=== PATIENT | male | born 1945 | race Caucasian/White ===

== ENCOUNTER → 2023-04-20 07:11 | Outpatient (CLI) | payer MEDICARE, OTHER, SELFPAY ==
[2023-04-20 08:53] LABS: Add Manual Diff / Slide Review NO; Basophils Absolute Auto 0 /uL (0-100); Basophils Percent Auto 0.9 % (0-2); Eosinophils Absolute Auto 0 /uL (0-450); Eosinophils Percent Auto 0.8 % (2-4); Hematocrit 39.7 % (41-53); Hemoglobin 13.6 g/dL (13.5-17.5); Lymphocytes Absolute Auto 1100 /uL (1100-4500); Lymphocytes Percent Auto 36.5 % (25-40); Mean Corpuscular HGB Conc 34.2 % (30-36); Mean Corpuscular Hemoglobin 31.2 PG (26-34); Mean Corpuscular Volume 91.4 fL (80-100); Monocytes Absolute Auto 700 /uL (0-900); Monocytes Percent Auto 23.8 % (3-14); Neutrophils Absolute Auto 1200 /uL (1500-7000); Platelet Count 64 X10^3/uL (150-400); Red Blood Cell Count 4.34 X10^6/uL (4.5-5.9); Red Cell Distribution Width 14.9 % (11.6-14.8); White Blood Cell Count 3.1 X10^3/uL (4.5-11.0)
[2023-04-20 09:12] LABS: Alanine Aminotransferase 41 IU/L (<50); Albumin 4.2 g/dL (3.5-5.0); Albumin Globulin Ratio 1.4 (1.0-2.8); Alkaline Phosphatase 72 U/L (38-126); Aspartate Aminotransferase 52 IU/L (17-59); BUN Creatinine Ratio 13.9 (6-22); Bilirubin Total 1.4 mg/dL (0.2-1.3); Blood Urea Nitrogen 15 mg/dL (9-20); Calcium 9.1 mg/dL (8.4-10.2); Carbon Dioxide 27 mmol/L (22-32); Chloride 103 mmol/L (98-107); Cholesterol 122 mg/dL (140-199); Estimated Glomerular Filt Rate > 60 mL/min (>60); Glucose 102 mg/dL (80-110); HDL Cholesterol 25 mg/dL (40-60); HEMOLYSIS < 15 (0-50); LDL Cholesterol Calculated 57 mg/dL (<100); Potassium 4.1 mmol/L (3.4-5.1); Sodium 138 mmol/L (137-145); Total Protein 7.2 g/dL (6.3-8.2); Triglycerides 202 mg/dL (35-150)
[2023-04-20 09:41] LABS: TSH w/ Reflex to FT4 2.11 uIU/mL (0.47-4.68)
== END ==
PROVIDERS: PCP Family Medicine; Referring Provider Family Medicine; Visit Provider Family Medicine
DX: E78.5 Hyperlipidemia, unspecified (principal); E03.9 Hypothyroidism, unspecified; R03.0 Elevated blood-pressure reading, without diagnosis of hypertension
CPT/HCPCS: 36415; 80053; 80061; 84443; 85025

== ENCOUNTER → 2023-04-28 07:23 | Outpatient (CLI) | payer MEDICARE, OTHER, SELFPAY ==
[2023-04-28 08:15] LABS: Hematocrit 40.5 % (41-53); Hemoglobin 13.9 g/dL (13.5-17.5); Mean Corpuscular HGB Conc 34.3 % (30-36); Mean Corpuscular Hemoglobin 31.4 PG (26-34); Mean Corpuscular Volume 91.6 fL (80-100); Platelet Count 73 X10^3/uL (150-400); Red Blood Cell Count 4.42 X10^6/uL (4.5-5.9); Red Cell Distribution Width 15.1 % (11.6-14.8); White Blood Cell Count 2.9 X10^3/uL (4.5-11.0)
[2023-04-28 08:26] LABS: Neutrophils Absolute Manual 1247 /uL (3000-5900); RBC Morphology Normal Morphology; Total Cells Counted 100
[2023-04-28 09:30] LABS: HIV 1 & 2 Ab/Ag 4th Gen Combo NEGATIVE (NEGATIVE)
[2023-04-28 15:19] LABS: Vitamin B12 350 pg/mL (239-931)
[2023-04-29 03:23] LABS: HBsAg Screen Negative (Negative); Hepatitis A Antibody IgM Negative (Negative); Hepatitis B Core Antibody IgM Negative (Negative); Hepatitis C Antibody Non Reactive (Non Reactive)
== END ==
PROVIDERS: PCP Family Medicine; Referring Provider Family Medicine; Visit Provider Family Medicine
DX: D72.819 Decreased white blood cell count, unspecified (principal); D70.9 Neutropenia, unspecified; D69.6 Thrombocytopenia, unspecified
CPT/HCPCS: 36415; 80074; 82607; 82747; 85014; 85025; 87389

== ENCOUNTER → 2023-04-30 06:54 | Outpatient (CLI) | payer MEDICARE, OTHER, SELFPAY ==
[2023-05-05 09:10] LABS: Folate, RBC 1463 ng/mL (>498); Hematocrit 39.5 % (37.5-51.0); Hemolysate 577.7 ng/mL (Not Estab.)
== END ==
PROVIDERS: PCP Family Medicine; Referring Provider Family Medicine; Visit Provider Family Medicine
DX: C95.90 Leukemia, unspecified not having achieved remission (principal); D70.9 Neutropenia, unspecified; D69.6 Thrombocytopenia, unspecified
CPT/HCPCS: 82747; 85014

== ENCOUNTER → 2023-05-07 13:20 | Outpatient (CLI) | payer MEDICARE, OTHER, SELFPAY ==
--- NOTE | 2023-05-07 13:21 | DI.RAD.S_ITS ---
PROCEDURE: FL BARIUM SWALLOW INDICATIONS: trouble swallowing COMPARISON: None. FINDINGS: Function: There is decreased amplitude of esophageal peristalsis with tertiary contractions noted. Spontaneous gastroesophageal reflux was noted into the upper esophagus. There is normal transit of a calibrated barium tablet through the esophagus into the stomach. Morphology: Air-contrast images demonstrate normal mucosal morphology. Single contrast views show no esophageal strictures, extrinsic mass effects, or diverticula. A small reducible hiatal hernia is noted. Limited images of the stomach demonstrate normal appearance. IMPRESSION: 1. Mild presbyesophagus. 2. Small reducible hiatal hernia. 3. Spontaneous gastroesophageal reflux into the upper esophagus. Approved by: Miles Maddox M.D. on 05/07/2023 at 14:22
== END ==
LOC: RAD 13:21
PROVIDERS: PCP Family Medicine; Referring Provider Family Medicine; Visit Provider Family Medicine
DX: K22.89 Other specified disease of esophagus (principal); K21.9 Gastro-esophageal reflux disease without esophagitis; K44.9 Diaphragmatic hernia without obstruction or gangrene; R13.10 Dysphagia, unspecified
CPT/HCPCS: 74220

== ENCOUNTER → 2024-05-08 08:44 | Outpatient (CLI) | payer MEDICARE, OTHER, SELFPAY ==
[2024-05-08 10:31] LABS: Hematocrit 41.3 % (41-53); Hemoglobin 14.1 g/dL (13.5-17.5); Mean Corpuscular HGB Conc 34.2 % (30-36); Mean Corpuscular Hemoglobin 30.9 PG (26-34); Mean Corpuscular Volume 90.3 fL (80-100); Platelet Count 81 X10^3/uL (150-400); Red Blood Cell Count 4.57 X10^6/uL (4.5-5.9); White Blood Cell Count 3.1 X10^3/uL (4.5-11.0)
[2024-05-08 10:36] LABS: Add Manual Diff / Slide Review YES
[2024-05-08 10:47] LABS: Alanine Aminotransferase 37 IU/L (<50); Albumin 4.6 g/dL (3.5-5.0); Albumin Globulin Ratio 2.1 (1.0-2.8); Alkaline Phosphatase 74 U/L (38-126); Aspartate Aminotransferase 60 IU/L (17-59); Bilirubin Total 1.5 mg/dL (0.2-1.3); Blood Urea Nitrogen 14 mg/dL (9-20); Calcium 9.3 mg/dL (8.4-10.2); Carbon Dioxide 27 mmol/L (22-32); Chloride 104 mmol/L (98-107); Cholesterol 130 mg/dL (140-199); Estimated Glomerular Filt Rate > 60 mL/min (>60); Globulin 2.2 g/dL (1.7-4.1); Glucose 105 mg/dL (80-110); HDL Cholesterol 26 mg/dL (40-60); HEMOLYSIS < 15 (0-50); LDL Cholesterol Calculated 59 mg/dL (<100); Potassium 4.4 mmol/L (3.4-5.1); Sodium 138 mmol/L (137-145); Total Protein 6.8 g/dL (6.3-8.2); Triglycerides 225 mg/dL (35-150)
[2024-05-08 11:02] LABS: Neutrophils Absolute Manual 1643 /uL (3000-5900); Total Cells Counted 100
[2024-05-08 11:03] LABS: Platelet Estimate Decreased on smear; RBC Morphology Normal Morphology
[2024-05-08 11:21] LABS: Thyroid Stimulating Hormone 2.02 uIU/mL (0.47-4.68)
== END ==
LOC: LAB 08:45
PROVIDERS: PCP Family Medicine; Referring Provider Family Medicine; Visit Provider Family Medicine
DX: D72.819 Decreased white blood cell count, unspecified (principal); I10 Essential (primary) hypertension; Z00.00 Encounter for general adult medical examination without abnormal findings; D69.6 Thrombocytopenia, unspecified; E78.5 Hyperlipidemia, unspecified; E03.9 Hypothyroidism, unspecified
CPT/HCPCS: 36415; 80053; 80061; 84443; 85007; 85025

== ENCOUNTER → 2024-10-24 14:18 | Outpatient (CLI) | payer MEDICARE, OTHER, SELFPAY ==
[2024-10-24 15:27] LABS: Influenza A - CEPHEID Flu A NEGATIVE (NEGATIVE); Influenza B - CEPHEID Flu B NEGATIVE (NEGATIVE); Respiratory Syncytial Virus Negative (Negative)
[2024-10-24 15:37] LABS: COVID-19 CEPHEID 4-PLEX PCR Negative (Negative)
== END ==
PROVIDERS: PCP Family Medicine; Visit Provider Physician Assistant
DX: R50.9 Fever, unspecified (principal)
CPT/HCPCS: 0241U

== ENCOUNTER → 2024-10-24 14:41 | Outpatient (CLI) | payer MEDICARE, OTHER, SELFPAY ==
--- NOTE | 2024-10-24 14:44 | DI.RAD.S_ITS ---
PROCEDURE: XR CHEST 2V INDICATIONS: cough x 4 years TECHNIQUE: 2 views of the chest were acquired. COMPARISON: None. FINDINGS: Moderate bilateral diffuse but predominantly perihilar and lower lobe peribronchial thickening with patchy lower lobe opacities, more than expected for artifact from expiratory result; bronchitis, bronchopneumonia, viral infection, asthma or other process should be considered. Follow-up is needed. Mildly prominent grace, mildly prominent pulmonary vessels and/or hilar lymph nodes. Moderate degenerative changes of the thoracic spine and shoulders. Cardiopericardial silhouette within normal limits. No pneumothorax, no pleural effusion, no lobar consolidation. IMPRESSION: Moderate peribronchial thickening and patchy opacities as discussed above. Follow-up is needed. If symptoms persist or worsen, CT chest could be performed. Dictated by: Alonso De La Cruz M.D. on 10/24/2024 at 15:16 Approved by: Alonso De La Cruz M.D. on 10/24/2024 at 15:20
[2024-10-24 15:34] LABS: Hematocrit 37.1 % (41-53); Hemoglobin 12.7 g/dL (13.5-17.5); Mean Corpuscular HGB Conc 34.4 % (30-36); Mean Corpuscular Hemoglobin 30.8 PG (26-34); Mean Corpuscular Volume 89.7 fL (80-100); Red Blood Cell Count 4.13 X10^6/uL (4.5-5.9); Red Cell Distribution Width 14.8 % (11.6-14.8); White Blood Cell Count 7.9 X10^3/uL (4.5-11.0)
[2024-10-24 15:35] LABS: Alanine Aminotransferase 67 IU/L (<50); Albumin 3.5 g/dL (3.5-5.0); Albumin Globulin Ratio 1.3 (1.0-2.8); Alkaline Phosphatase 152 U/L (38-126); Aspartate Aminotransferase 71 IU/L (17-59); BUN Creatinine Ratio 22.9 (6-22); Bilirubin Total 2.7 mg/dL (0.2-1.3); Blood Urea Nitrogen 32 mg/dL (9-20); Calcium 8.6 mg/dL (8.4-10.2); Carbon Dioxide 21 mmol/L (22-32); Chloride 97 mmol/L (98-107); Estimated Glomerular Filt Rate 51 mL/min (>60); Globulin 2.6 g/dL (1.7-4.1); Glucose 134 mg/dL (70-99); HEMOLYSIS < 15 (0-50); Potassium 4.4 mmol/L (3.4-5.1); Sodium 131 mmol/L (137-145); Total Protein 6.1 g/dL (6.3-8.2)
[2024-10-24 15:40] LABS: Add Manual Diff / Slide Review YES; Platelet Count 5 X10^3/uL (150-400)
[2024-10-24 15:48] LABS: Neutrophils Absolute Manual 3476 /uL (3000-5900); Total Cells Counted 100
[2024-10-24 15:49] LABS: RBC Morphology Normal Morphology
== END ==
PROVIDERS: PCP Family Medicine; Referring Provider Family Medicine; Visit Provider Physician Assistant
DX: J06.9 Acute upper respiratory infection, unspecified (principal)
CPT/HCPCS: 36415; 71046; 80053; 85007; 85025

== ENCOUNTER 2024-10-24 16:14 | Emergency (ER) | payer MEDICARE, OTHER, SELFPAY ==
[2024-10-24] VITALS (19 sets, daily range): BP systolic 144–186; BP diastolic 72–123; PULSE 82–111; RESP 18–33; TEMP 37.2; O2SAT 88–96; BMI 29.0
--- NOTE | 2024-10-24 16:30 | ED_ITS ---
HPI - Recheck/Abnormal Lab/Rx <Erika Reece MD - Last Filed: 10/26/24 07:48> General Chief Complaint: Recheck/Abnormal Lab/Rx Stated Complaint: Abnormal Lab Time Seen by Provider: 10/24/24 16:30 Source: patient Mode of arrival: Wheelchair History of Present Illness HPI narrative: 79-year-old gentleman with a history of hypothyroidism and occasional reflux presents with fever, cough, congestion since the . Was initially seen as an outpatient with a rapid strep test that was positive, he does describe a tickle in the back of his throat, chest x-ray that was abnormal with bibasilar infiltrates and platelets came back as low as 5. The friend accompanying him indicates that since this morning he has been ?off?, slightly garbled speech, more recalcitrant to suggestion such as that is go to your doctor or lets go to the emergency department which is quite unusual for him. Over the course of the afternoon and later evening she feels that his gait is becoming weaker and more unsteady. There are no localizing symptoms. He is not febrile on arrival in the emergency department he is not complaining of cough, abdominal pain, lower extremity edema, headache Related Data Home Medications ?Medication ?Instructions ?Recorded ?Confirmed omeprazole 20 mg capsule,delayed 20 mg PO BID 05/08/24 10/24/24 release Previous Rx's ?Medication ?Instructions ?Recorded atorvastatin 40 mg tablet 40 mg PO DAILY #90 tabs 05/03 07/25 levothyroxine 100 mcg tablet 100 mcg PO DAILY #90 tabs 05/15/24 amoxicillin 500 mg tablet 500 mg PO Q12H #20 tabs 10/02 08/25 benzonatate 200 mg capsule 200 mg PO TID #30 caps 10/02 08/25 guaifenesin 1,200 mg tablet, 1,200 mg PO BID #30 tabs 10/24/24 extended release 12 hr Allergies Allergy/AdvReac Type Severity Reaction Status Date / Time No Known Allergies Allergy Verified 10/24/24 13:14 Review of Systems <Erika Reece MD - Last Filed: 10/26/24 07:48> Review of Systems Narrative: Pertinent positive and negative findings as per HPI Patient History <Erika Reece MD - Last Filed: 10/26/24 07:48> Medical History (Updated 10/24/24 @ 21:09 by Troy James MD) Thrombocytopenia Hypothyroidism Hyperlipidemia Hypertension Social History Smoking Status: Never smoker Smoking Status: Never smoker Exam <Erika Reece MD - Last Filed: 10/26/24 07:48> Initial Vital Signs Initial Vital Signs: Vital Signs Temperature 99 F 10/24/24 16:24 Pulse Rate 88 10/24/24 16:24 Respiratory Rate 18 10/24/24 16:24 Blood Pressure 144/72 H 10/24/24 16:24 Pulse Oximetry 93 10/24/24 16:24 Oxygen Delivery Method Room Air 10/24/24 16:24 General: Older, in no acute distress, does have a slightly dysarthric voice but he is still able to make his meeting and words clear. He states this is due to the ?tickle in his throat. HEENT: Moist mucous membranes, normal sclera with reactive pupils, mildly erythematous question mild discharge upper portion of the right tonsillar pill ar. No cervical adenopathy Respiratory: Lungs are clear to auscultation, no wheezing no rales no rhonchi. Full and symmetrical air movement Cardiac: Regular rate and rhythm no murmurs no bruits Abdomen: Soft, nontender, no rebound or guarding, no flank pain Skin: Warm and dry, no rashes Neurologic: Grossly neurologically intact with no obvious asymmetries or abnormalities, mild dysarthria versus swollen throat. NIH=1 Extremities: No trauma, well perfused Psych: Cooperative, oriented to person time and place, accompanying friend still feels that he is not at his baseline <Troy James MD - Last Filed: 10/25/24 06:27> Initial Vital Signs Initial Vital Signs: Vital Signs Temperature 99 F 10/24/24 16:24 Pulse Rate 88 10/24/24 16:24 Respiratory Rate 18 10/24/24 16:24 Blood Pressure 144/72 H 10/24/24 16:24 Pulse Oximetry 93 10/24/24 16:24 Oxygen Delivery Method Room Air 10/24/24 16:24 Course <Erika Reece MD - Last Filed: 10/26/24 07:48> Orders Ordered: Discontinued Medications Sodium Chloride (Normal Saline 0.9%) 1,000 mls @ 1,000 mls/hr IV BOLUS ONE Stop: 10/24/24 17:54 Last Infusion: 10/24/24 19:23 Dose: Infused Documented By: Admin: 10/24/24 17:19 Dose: 1,000 mls/hr Documented By: INOCENCIO Methylprednisolone (Methylprednisolone 125 Mg/2 Ml Vial) 500 mg IV NOW ONE Stop: 10/24/24 18:12 Last Admin: 10/24/24 19:21 Dose: 500 mg Documented By: INOCENCIO Vital Signs Vital signs: Vital Signs - 8 hr 10/24/24 16:24 10/24/24 16:45 10/24/24 17:10 Temperature 99 F Pulse Rate 88 96 H 101 H Respiratory Rate 18 27 H 23 Blood Pressure 144/72 H Pulse Oximetry 93 90 L 88 L Oxygen Delivery Method Room Air Oxygen Flow Rate 10/24/24 17:17 10/24/24 17:17 10/24/24 17:30 Temperature Pulse Rate 94 H Respiratory Rate 23 Blood Pressure 169/73 H 174/80 H Pulse Oximetry 95 Oxygen Delivery Method Oxygen Flow Rate 10/24/24 17:30 10/24/24 18:00 10/24/24 18:01 Temperature Pulse Rate 96 H 88 111 H Respiratory Rate 26 H 23 33 H Blood Pressure Pulse Oximetry 93 95 95 Oxygen Delivery Method Oxygen Flow Rate 10/24/24 18:01 10/24/24 18:30 10/24/24 18:31 Temperature Pulse Rate 91 H 91 H Respiratory Rate 21 23 Blood Pressure 159/90 H Pulse Oximetry 94 94 Oxygen Delivery Method Oxygen Flow Rate 10/24/24 18:31 10/24/24 19:00 10/24/24 19:00 Temperature Pulse Rate 90 Respiratory Rate 28 H Blood Pressure 186/92 H 176/86 H Pulse Oximetry 96 Oxygen Delivery Method Oxygen Flow Rate 10/24/24 19:30 10/24/24 19:31 10/24/24 19:31 Temperature Pulse Rate 87 87 Respiratory Rate 23 23 Blood Pressure 168/85 H Pulse Oximetry 94 95 Oxygen Delivery Method Oxygen Flow Rate 10/24/24 20:00 10/24/24 20:00 10/24/24 20:30 Temperature Pulse Rate 84 89 Respiratory Rate 23 Blood Pressure 166/79 H Pulse Oximetry 95 92 Oxygen Delivery Method Oxygen Flow Rate 10/24/24 20:30 Temperature Pulse Rate Respiratory Rate Blood Pressure 169/106 H Pulse Oximetry 92 Oxygen Delivery Method Nasal Cannula Oxygen Flow Rate 2 <Troy James MD - Last Filed: 10/25/24 06:27> Orders Ordered: Discontinued Medications Sodium Chloride (Normal Saline 0.9%) 1,000 mls @ 1,000 mls/hr IV BOLUS ONE Stop: 10/24/24 17:54 Last Infusion: 10/24/24 19:23 Dose: Infused Documented By: Admin: 10/24/24 17:19 Dose: 1,000 mls/hr Documented By: INOCENCIO Methylprednisolone (Methylprednisolone 125 Mg/2 Ml Vial) 500 mg IV NOW ONE Stop: 10/24/24 18:12 Last Admin: 10/24/24 19:21 Dose: 500 mg Documented By: INOCENCIO Vital Signs Vital signs: Vital Signs - 8 hr 10/24/24 16:24 10/24/24 16:45 10/24/24 17:10 Temperature 99 F Pulse Rate 88 96 H 101 H Respiratory Rate 18 27 H 23 Blood Pressure 144/72 H Pulse Oximetry 93 90 L 88 L Oxygen Delivery Method Room Air Oxygen Flow Rate 10/24/24 17:17 10/24/24 17:17 10/24/24 17:30 Temperature Pulse Rate 94 H Respiratory Rate 23 Blood Pressure 169/73 H 174/80 H Pulse Oximetry 95 Oxygen Delivery Method Oxygen Flow Rate 10/24/24 17:30 10/24/24 18:00 10/24/24 18:01 Temperature Pulse Rate 96 H 88 111 H Respiratory Rate 26 H 23 33 H Blood Pressure Pulse Oximetry 93 95 95 Oxygen Delivery Method Oxygen Flow Rate 10/24/24 18:01 10/24/24 18:30 10/24/24 18:31 Temperature Pulse Rate 91 H 91 H Respiratory Rate 21 23 Blood Pressure 159/90 H Pulse Oximetry 94 94 Oxygen Delivery Method Oxygen Flow Rate 10/24/24 18:31 10/24/24 19:00 10/24/24 19:00 Temperature Pulse Rate 90 Respiratory Rate 28 H Blood Pressure 186/92 H 176/86 H Pulse Oximetry 96 Oxygen Delivery Method Oxygen Flow Rate 10/24/24 19:30 10/24/24 19:31 10/24/24 19:31 Temperature Pulse Rate 87 87 Respiratory Rate 23 23 Blood Pressure 168/85 H Pulse Oximetry 94 95 Oxygen Delivery Method Oxygen Flow Rate 10/24/24 20:00 10/24/24 20:00 10/24/24 20:30 Temperature Pulse Rate 84 89 Respiratory Rate 23 Blood Pressure 166/79 H Pulse Oximetry 95 92 Oxygen Delivery Method Oxygen Flow Rate 10/24/24 20:30 Temperature Pulse Rate Respiratory Rate Blood Pressure 169/106 H Pulse Oximetry 92 Oxygen Delivery Method Nasal Cannula Oxygen Flow Rate 2 MDM - Recheck/Abnormal Lab/Rx <Erika Reece MD - Last Filed: 10/26/24 07:48> Lab Data Labs: Lab Results 10/24/24 10/24/24 Range/Units 16:47 19:25 Lactate 2.1 (0.7-2.1) mmol/L Group A Strep (PCR) Negative (Negative) Blood Type O Positive Imaging Data CT of the chest abdomen and pelvis: Radiologist's Impression: PROCEDURE: CT CHEST ABD PEL W CON INDICATIONS: Abnormal chest x-ray, elevated liver studies TECHNIQUE: After the administration of intravenous contrast, 5 mm thick sections acquired from the lung apices to the symphysis. 5 mm coronal and sagittal reformats were performed, with additional 7 mm MIP reformats through the lungs. For radiation dose reduction, the following was used: automated exposure control, adjustment of mA and/or kV according to patient size. COMPARISON: None. FINDINGS: Image quality: Excellent. CHEST: Lower Neck: No enlarged lymph nodes. Thyroid: No thyroid nodules which require sonographic follow up, per consensus guidelines. Axillae: No enlarged lymph nodes. Chest Wall: Unremarkable. Lungs and Pleura: No pneumothorax or pleural effusions. There is mild interlobular septal thickening in the mid to lower lungs. There are also extensive centrilobular as well as perivascular areas of ground-glass density bilaterally, more on the right as well as in the mid to lower lungs. Heart: Heart size is normal. No pericardial effusion. Thoracic Vessels: The aorta and pulmonary arteries demonstrate normal size. Mediastinum and [place]: No enlarged lymph nodes. Esophagus: No wall thickening. No hiatal hernia. ABDOMEN: Liver: No solid mass. Gallbladder: Small calculi in the gallbladder. No inflammatory changes. Biliary ducts: No biliary dilation. Pancreas: No ductal dilation. Spleen: Size is within normal limits. Adrenal Glands: No adrenal nodules. Kidneys and Ureters: No hydronephrosis. No solid mass. No complex renal cystic lesion which requires follow up. Stomach and Bowel: Normal colonic caliber, without significant wall thickening. The appendix is normal Peritoneum: No abnormal intraperitoneal fluid. No free air. Ventral Wall: No significant ventral hernia. Abdominal Nodes: No retroperitoneal or mesenteric adenopathy by size criteria. Vessels: Aorta and inferior vena cava are normal in size. PELVIS: Pelvic Organs: Unremarkable. Bladder: No bladder wall thickening, accounting for underdistention. Pelvic Nodes: No enlarged lymph nodes. Miscellaneous: No inguinal hernias are seen. Bones: No aggressive osseous abnormality. IMPRESSION: 1. Extensive bilateral alveolar densities as well as mild interstitial densities as described. In the acute setting findings may present alveolar hemorrhage, possibly also edema or atypical infection. Short-term follow-up chest radiographs may be obtained. 2. No acute abnormality in the abdomen and pelvis. Dictated by: Rodolfo Sanchez M.D. on 10/24/2024 at 17:17 MDM Narrative Medical decision making narrative: CC: Platelets 5, labs done earlier today by outpatient provider Complicating co-morbidities: Hypothyroidism, reflux, hyperlipidemia, he is no longer in blood pressure medications. Was feeling ?not right? and outpatient workup shows an abnormal chest x-ray with abnormal blood work Data collected from: patient Medical records reviewed: Notes from family practice visit earlier today are reviewed along with blood work that led to recommendation for hospitalization Differential considered: Pneumonia, ITP, intracranial hemorrhage secondary to platelets at 5, stroke, sepsis, neoplastic process Exam documented above, pertinent findings include: Patient is in no respiratory distress, his voice does sound a bit hoarse in articulation is not perfect, throat is minimally erythematous, no dramatic findings on pulmonary exam Lab Test results independently reviewed as above. Pertinent findings: Chemistries are markedly abnormal. Creatinine slightly elevated from 1.1-1.4. Sodium is low at 131, chloride low at 97. BUN slightly elevated at 32. Liver studies have risen with bilirubin at 2.7 AST is 71 ALT 67 alk-phos at 152 CBC is notable for a normal white blood cell count at 7.9. He is slightly anemic at 12.7 and 37.1 comparison 6 months ago is 14.1 and 41.3. Patient has chronic thrombocytopenia with platelets typically in the 60-80 range, today there are 5 Imaging studies independently reviewed: CT of the chest abdomen and pelvis done for abnormal chest x-ray and abnormal liver enzymes shows bilateral alveolar densities and mild interstitial densities with ground-glass densities bilaterally more in the right as well as in the mid to lower lungs. No obvious liver abnormalities appreciated Consultations: Dr Mckinley, oncology at [facility]. Recommend 2 units of platelets, 500 mg of IV Solu-Medrol now and repeat in 12 hours. 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 Currently spleen is not enlarged, white cell count is not elevated, in the absence of fevers and in discussion with Dr. Blankenship I am not going to start antibiotics. Treatments: Fluids Re-evaluations: Care turned over to Dr James at 6pm Discussion: 79-year-old gentleman presents with mild dysarthria general malaise seen in primary care clinic with a false-positive rapid strep test but labs concerning for thrombocytopenia with platelets at 5. Initial concern was for spontaneous intracranial hemorrhage that does not seem to be the case. Patient does have a history of chronic thrombocytopenia but usually is in the 60-80 range. He has never been as low as 5. Recommendation is to units of platelets transfused, it takes at least 6 hours to get platelets [address] [place] [address]. We will make a couple of phone calls to see if transfer is possible where more expedient platelet transfusion might be possible. Will begin Solu-Medrol, we will need repeat at 12 hours. <Troy James MD - Last Filed: 10/25/24 06:27> Lab Data Labs: Lab Results 10/24/24 10/24/24 Range/Units 16:47 19:25 Lactate 2.1 (0.7-2.1) mmol/L Group A Strep (PCR) Negative (Negative) Blood Type O Positive MDM Narrative Medical decision making narrative: CC: Platelets 5, labs done earlier today by outpatient provider Complicating co-morbidities: Hypothyroidism, reflux, hyperlipidemia, he is no longer in blood pressure medications. Was feeling ?not right? and outpatient workup shows an abnormal chest x-ray with abnormal blood work Data collected from: patient Medical records reviewed: Notes from family practice visit earlier today are reviewed along with blood work that led to recommendation for hospitalization Differential considered: Pneumonia, ITP, intracranial hemorrhage secondary to platelets at 5, stroke, sepsis, neoplastic process Exam documented above, pertinent findings include: Patient is in no respiratory distress, his voice does sound a bit hoarse in articulation is not perfect, throat is minimally erythematous, no dramatic findings on pulmonary exam Lab Test results independently reviewed as above. Pertinent findings: Chemistries are markedly abnormal. Creatinine slightly elevated from 1.1-1.4. Sodium is low at 131, chloride low at 97. BUN slightly elevated at 32. Liver studies have risen with bilirubin at 2.7 AST is 71 ALT 67 alk-phos at 152 CBC is notable for a normal white blood cell count at 7.9. He is slightly anemic at 12.7 and 37.1 comparison 6 months ago is 14.1 and 41.3. Patient has chronic thrombocytopenia with platelets typically in the 60-80 range, today there are 5 Imaging studies independently reviewed: CT of the chest abdomen and pelvis done for abnormal chest x-ray and abnormal liver enzymes shows bilateral alveolar densities and mild interstitial densities with ground-glass densities bilaterally more in the right as well as in the mid to lower lungs. No obvious liver abnormalities appreciated Consultations: Dr Mckinley, oncology at [facility]. Recommend 2 units of platelets, 500 mg of IV Solu-Medrol now and repeat in 12 hours. 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 Currently spleen is not enlarged, white cell count is not elevated, in the absence of fevers and in discussion with Dr. Blankenship I am not going to start antibiotics. Treatments: Fluids Re-evaluations: Care turned over to Dr James at 6pm Discussion: 79-year-old gentleman presents with mild dysarthria general malaise seen in primary care clinic with a false-positive rapid strep test but labs concerning for thrombocytopenia with platelets at 5. Initial concern was for spontaneous intracranial hemorrhage that does not seem to be the case. Patient does have a history of chronic thrombocytopenia but usually is in the 60-80 range. He has never been as low as 5. Recommendation is to units of platelets transfused, it takes at least 6 hours to get platelets [address] [place] [address]. We will make a couple of phone calls to see if transfer is possible where more expedient platelet transfusion might be possible. Will begin Solu-Medrol, we will need repeat at 12 hours. 10/24/241829, Jacob. Sign-out from Dr. Reece. 79-year-old male with generalized malaise, recently diagnosed with strep pharyngitis by rapid strep screen done in clinic setting, strep screen negative here, having generalized malaise, labs screening sent here. Labs were significant for thrombocytopenia with count 5000. Hemoglobin and white blood cell count and wound normal. No headache. CT head no acute changes. CT chest abdomen and pelvis showed ground- glass pulmonary changes, hemorrhage versus atypical pneumonia changes, no intra abdominopelvic acute changes or bleeding. Phone consultation with Oncology [facility] Dr. Blankenship, consider ITP, IV Solu-Medrol 125 mg now and repeat in 12 hours. No beds available at [facility] for transfer at this time. Consider timely transfer if bed can be arranged. Otherwise we will initiate carrier delivered IV platelet two 6 pack units. We will initiate calls for alternate facility transfers. Assumed care. 2049, case discussed with [facility] Torres hospitalist Dr. Zarate who can accept for patient, await for expedited bed placement. [employer] platelets order canceled. 2099, bed assigned [facility]ay[facility] Torres, we will arrange EMS transportation Discharge Plan Departure Patient Disposition: [facility] Clinical Impression: Thrombocytopenia Prescriptions: No Action atorvastatin 40 mg tablet 40 mg PO DAILY Qty: 90 3RF levothyroxine 100 mcg tablet 100 mcg PO DAILY Qty: 90 3RF omeprazole 20 mg capsule,delayed release(DR/EC) 20 mg PO BID benzonatate 200 mg capsule 200 mg PO TID Qty: 30 0RF guaifenesin 1,200 mg tablet extended release 12hr 1,200 mg PO BID Qty: 30 0RF amoxicillin 500 mg tablet 500 mg PO Q12H Qty: 20 0RF Referrals: Natacha Lao DO [Primary Care Provider, Family Practice]
--- NOTE | 2024-10-24 16:53 | DI.CT.S_ITS ---
PROCEDURE: CT HEAD/BRAIN WO CON INDICATIONS: Dysarthria, new onset TECHNIQUE: Noncontrast 4.5 mm thick angled axial sections acquired from the foramen magnum to the vertex, with coronal and sagittal reformats. For radiation dose reduction, the following was used: automated exposure control, adjustment of mA and/or kV according to patient size. COMPARISON: None. FINDINGS: Image quality: Diagnostic. CSF spaces: Basal cisterns are patent. No extra-axial fluid collections. The ventricles are symmetric in size and shape. Brain: No intracranial bleeds or mass effect. There is cerebral volume loss, with resultant ventricular and sulcal prominence. There are periventricular and deep white matter chronic small vessel ischemic changes. There is intracranial internal carotid artery atherosclerosis. Skull and face: Calvarium and visualized facial bones appear intact, without suspicious lesions. Sinuses: Visualized sinuses and mastoids are clear. IMPRESSION: No acute intracranial pathology. Comment: If clinically suspect acute stroke, brain MRI may be helpful. Dictated by: Lewis Negron M.D. on 10/24/2024 at 17:54 Approved by: Lewis Negron M.D. on 10/24/2024 at 17:55
--- NOTE | 2024-10-24 16:53 | DI.CT.S_ITS ---
PROCEDURE: CT CHEST ABD PEL W CON INDICATIONS: Abnormal chest x-ray, elevated liver studies TECHNIQUE: After the administration of intravenous contrast, 5 mm thick sections acquired from the lung apices to the symphysis. 5 mm coronal and sagittal reformats were performed, with additional 7 mm MIP reformats through the lungs. For radiation dose reduction, the following was used: automated exposure control, adjustment of mA and/or kV according to patient size. COMPARISON: None. FINDINGS: Image quality: Excellent. CHEST: Lower Neck: No enlarged lymph nodes. Thyroid: No thyroid nodules which require sonographic follow up, per consensus guidelines. Axillae: No enlarged lymph nodes. Chest Wall: Unremarkable. Lungs and Pleura: No pneumothorax or pleural effusions. There is mild interlobular septal thickening in the mid to lower lungs. There are also extensive centrilobular as well as perivascular areas of ground-glass density bilaterally, more on the right as well as in the mid to lower lungs. Heart: Heart size is normal. No pericardial effusion. Thoracic Vessels: The aorta and pulmonary arteries demonstrate normal size. Mediastinum and [place]: No enlarged lymph nodes. Esophagus: No wall thickening. No hiatal hernia. ABDOMEN: Liver: No solid mass. Gallbladder: Small calculi in the gallbladder. No inflammatory changes. Biliary ducts: No biliary dilation. Pancreas: No ductal dilation. Spleen: Size is within normal limits. Adrenal Glands: No adrenal nodules. Kidneys and Ureters: No hydronephrosis. No solid mass. No complex renal cystic lesion which requires follow up. Stomach and Bowel: Normal colonic caliber, without significant wall thickening. The appendix is normal Peritoneum: No abnormal intraperitoneal fluid. No free air. Ventral Wall: No significant ventral hernia. Abdominal Nodes: No retroperitoneal or mesenteric adenopathy by size criteria. Vessels: Aorta and inferior vena cava are normal in size. PELVIS: Pelvic Organs: Unremarkable. Bladder: No bladder wall thickening, accounting for underdistention. Pelvic Nodes: No enlarged lymph nodes. Miscellaneous: No inguinal hernias are seen. Bones: No aggressive osseous abnormality. IMPRESSION: 1. Extensive bilateral alveolar densities as well as mild interstitial densities as described. In the acute setting findings may present alveolar hemorrhage, possibly also edema or atypical infection. Short-term follow-up chest radiographs may be obtained. 2. No acute abnormality in the abdomen and pelvis. Dictated by: Rodolfo Sanchez M.D. on 10/24/2024 at 17:17 Approved by: Rodolfo Sanchez M.D. on 10/24/2024 at 17:23
[2024-10-24 17:05] LABS: Strep Grp A by PCR Rapid Negative (Negative)
[2024-10-24 17:08] LABS: Lactate (Lactic Acid) 2.1 mmol/L (0.7-2.1)
[2024-10-24] MEDS: SODIUM CHLORIDE 0.9% 1,000 ML 1000 ML IV (17:19)
[2024-10-24 18:34] LABS: Reflexed Lactate in 2 Hours Y
[2024-10-24] MEDS: methylPREDNISolone 125 MG/2 ML VIAL 500 MG IV (19:21)
--- NOTE | 2024-10-24 19:22 | PC.NURSE ---
This RN called [facility] to confirm administration of 500mg of solu-medrol, recommendation is in 250NS over 1 hour
== END 2024-10-24 22:34 | disposition short-term general hospital (02) ==
PROVIDERS: Emergency Medicine; Emergency Provider Emergency Medicine; PCP Family Medicine
DX: D69.6 Thrombocytopenia, unspecified (principal)
CPT/HCPCS: 0241U; 36415; 70450; 71046; 71260; 74177; 80053; 83605; 85007; 85025; 86900; 86901; 87040; 87651; 96361; 96374; 99284; J2919; Q9967